=== PATIENT | female | born 1965 | race Caucasian/White ===

== ENCOUNTER 2017-03-06 17:32 | Emergency (ER) | payer OTHER ==
[2017-03-06 17:44] VITALS: BP 136/98; PULSE 99; TEMP 97.9; BMI 26.9
--- NOTE | 2017-03-06 19:01 | PDOC ---
History of Present Illness - History of Present Illness Initial Comments: 03/06/17 19:03 51 year old female with a PMHx of anxiety and asthma, who presents to the ER complaining of anxiety and rapid heart beat. She says that she was cleaning at home when she began thinking about her family in [place]. She says that she is worried about her mother who is 80 years old and continuously calls her every day asking for her to come and bring a generator. Patients mother has family in [place] but they are all in need she says. Patient reports having rapid heart rate, numbness in her arms and fingertips bilaterally, as well hyperventilatin. Denies chest pain, fever, chills, nausea, vomiting. PMD: Nelda Stanley Allergies: NKA <Neida Dodson - Last Filed: 03/06/17 19:03> <Stacy Canales - Last Filed: 03/06/17 23:38> - General Chief Complaint: Psychiatric Stated Complaint: ANXIETY Time Seen by Provider: 03/06/17 18:15 Past History <Neida Dodson - Last Filed: 03/06/17 19:03> - Past Medical History Asthma: Yes COPD: No - Surgical History Abdominal Surgery: (esure) - Immunization History Immunization Up to Date: Yes - Suicide/Smoking/Psychosocial Hx Smoking History: Never smoked Have you smoked in the past 12 months: Yes Number of Cigarettes Smoked Daily: 5 Information on smoking cessation initiated: Yes 'Breaking Loose' booklet given: 03/06/17 Hx Alcohol Use: No Drug/Substance Use Hx: No Substance Use Type: None <Stacy Canales - Last Filed: 03/06/17 23:38> - Past Medical History Allergies/Adverse Reactions: Allergies Allergy/AdvReac Type Severity Reaction Status Date / Time No Known Allergies Allergy Verified 03/06/17 17:37 Home Medications: Ambulatory Orders Albuterol Sulfate Inhaler - [Ventolin HFA Inhaler -] 1 puff IH PRN 03/06/17 Review of Systems - Review of Systems Comments:: 03/06/17 19:04 CONSTITUTIONAL: Absent: fever, no chills, no fatigue EYES: Absent: visual changes ENT: Absent: ear pain, no sore throat CARDIOVASCULAR: Present: palpitations Absent: chest pain. RESPIRATORY: Present: tachypnea Absent: cough, no SOB GI: Absent: abdominal pain, no nausea, no vomiting, no constipation, no diarrhea GENITOURINARY: Absent: dysuria, no frequency, no hematuria MUSCULOSKELETAL: Absent: back pain, no arthralgia, no myalgia SKIN: Absent: rash NEURO: Present: numbness in fingertips and upper extremities bilaterally. Absent: headache <Neida Dodson - Last Filed: 03/06/17 19:03> *Physical Exam - Vital Signs Last Vital Signs Temp Pulse Resp BP Pulse Ox 97.9 F 99 H 20 136/98 98 03/06/17 17:37 03/06/17 17:37 03/06/17 17:37 03/06/17 17:37 03/06/17 17:37 - Physical Exam Comments: 03/06/17 19:04 GENERAL: Well-appearing, well-nourished. Anxious appearing. HEENT: Normocephalic, atraumatic. PERRL, EOM intact. CARDIOVASCULAR: Normal S1, S2. Regular rate and rhythm. No murmurs. PULMONARY: No bruits, Clear to auscultation bilaterally. ABDOMEN: Soft, non-distended, non-tender. EXTREMITIES: Normal ROM in all four extremities. No gross deformities. SKIN: Warm, dry. No rash NEUROLOGICAL: No focal neurological deficits. <Neida Dodson - Last Filed: 03/06/17 19:03> - Vital Signs Last Vital Signs Temp Pulse Resp BP Pulse Ox 97.9 F 99 H 20 136/98 98 03/06/17 17:37 03/06/17 17:37 03/06/17 17:37 03/06/17 17:37 03/06/17 17:37 <Stacy Canales - Last Filed: 03/06/17 23:38> Heart Score/ECG Review - ECG Impressions Comment:: 03/06/17 19:04 EKG Impressions: Normal sinus rhythm with sinus arrhythmia Vent rate: 80 bpm <Neida Dodson - Last Filed: 03/06/17 19:03> Medical Decision Making - Medical Decision Making 03/06/17 23:30 51-year-old female presents because she has had increasing anxiety accompanying the palpitations and yesterday had an event where she became very upset and developed tingling in her bilateral hands and tingling around her lips. She has an 80-year-old mother who is living in [place] with no electrical power. The mother does not have a generator and has requested the patient purchase a generator and put on a plane and fly to [place] -the pt has minor children and a 3 month old grandchild she cares for and she feels very distressed over he mother's situation EKG is normal sinus rhythm with no evidence of any ischemia. Patient did not exhibit any shortness of breath or anterior chest pain IMP panic attack,hyperventilation <Stacy Canales - Last Filed: 03/06/17 23:38> *DC/Admit/Observation/Transfer - Attestations Scribe Attestion: 03/06/17 19:05 Documentation prepared by Neida Dodson, acting as medical review coordinator for Stacy Canales MD. <Neida Dodson - Last Filed: 03/06/17 19:03> <Stacy Canales - Last Filed: 03/06/17 23:38> Diagnosis at time of Disposition: Panic anxiety syndrome - Discharge Dispostion Disposition: HOME Condition at time of disposition: Stable - Referrals Referrals: Nelda Stanley MD [Primary Care Provider] - - Patient Instructions Printed Discharge Instructions: DI for Panic Disorder Additional Instructions: please followup with your primary doctor
--- NOTE | 2017-03-07 12:34 | EKG ---
Test Reason : Blood Pressure : / mmHG Vent. Rate : 080 BPM Atrial Rate : 080 BPM P-R Int : 134 ms QRS Dur : 086 ms QT Int : 354 ms P-R-T Axes : 040 049 034 degrees QTc Int : 408 ms NORMAL SINUS RHYTHM WITH SINUS ARRHYTHMIA NORMAL ECG WHEN COMPARED WITH ECG OF 22-FEB-2005 12:43, NO SIGNIFICANT CHANGE WAS FOUND Confirmed by DARYL MORENO MD ([id number]) on 03/07/2017 12:34:13 PM Referred By: Confirmed By:DARYL MORENO MD
== END 2017-03-06 20:03 | disposition home or self-care (01) ==
LOC: JER 17:32
DX: F41.0 Panic disorder [episodic paroxysmal anxiety] (principal); Z63.79 Other stressful life events affecting family and household
CPT/HCPCS: 93005; 93010; 99282-25

== ENCOUNTER 2017-03-10 17:24 | Emergency (ER) | payer OTHER ==
[2017-03-10 17:41] VITALS: TEMP 97.9; BMI 26.9
--- NOTE | 2017-03-10 17:51 | PDOC ---
History of Present Illness - General History Source: Patient Exam Limitations: No Limitations - History of Present Illness Initial Comments: 03/10/17 19:24 Pt. is a 51 y/o female with a PMH of anxiety who presents to the ED c/o of chest pain. Pt. states that she was cleaning the house when all of a sudden she felt a sharp pain to her left chest. She states that the pain then radiated to her neck. She states that the pain is made worse when she touches the area. Pt. states that she feels overwhelmed with home life and is concerned about her family. She states that before the pain started she felt short of breath. Denies LOC, palpitations, edema, n/v/d, fevers, chills. <Ryann Vance - Last Filed: 03/10/17 19:24> <Kaleigh Beltran - Last Filed: 03/10/17 20:02> - General Chief Complaint: Chest Pain Stated Complaint: CHEST PAIN Time Seen by Provider: 03/10/17 17:41 Past History - Travel Traveled outside of the country in the last 30 days: No Close contact w/someone who was outside of country & ill: No - Past Medical History Asthma: Yes COPD: No Psychiatric Problems: Yes (Anxiety) - Surgical History Abdominal Surgery: (esure) - Immunization History Immunization Up to Date: Yes - Suicide/Smoking/Psychosocial Hx Smoking History: Current every day smoker Have you smoked in the past 12 months: Yes Number of Cigarettes Smoked Daily: 5 Information on smoking cessation initiated: No 'Breaking Loose' booklet given: 03/06/17 Hx Alcohol Use: Yes Drug/Substance Use Hx: No Substance Use Type: None <Ryann Vance - Last Filed: 03/10/17 19:24> <Kaleigh Beltran - Last Filed: 03/10/17 20:02> - Past Medical History Allergies/Adverse Reactions: Allergies Allergy/AdvReac Type Severity Reaction Status Date / Time No Known Allergies Allergy Verified 03/10/17 18:31 Home Medications: Ambulatory Orders NK [No Known Home Medication] 03/10/17 Review of Systems - Review of Systems Able to Perform ROS?: Yes Comments:: 03/10/17 19:07 CONSTITUTIONAL: Absent: fever, chills, diaphoresis, generalized weakness, malaise, loss of appetite HEENT: Absent: rhinorrhea, nasal congestion, throat pain, throat swelling, difficulty swallowing, mouth swelling, ear pain, eye pain, visual Changes CARDIOVASCULAR: Present: chest pain Absent: loss of consciousness, palpitations, irregular heart rate, peripheral edema RESPIRATORY: Present: shortness of breath Absent: cough, dyspnea with exertion, orthopnea, wheezing, stridor, hemoptysis GASTROINTESTINAL: Absent: abdominal pain, abdominal distension, nausea, vomiting, diarrhea, constipation, melena, hematochezia GENITOURINARY: Absent: dysuria, frequency, urgency, hesitancy, hematuria, flank pain, genital pain MUSCULOSKELETAL: Absent: myalgia, arthralgia, joint swelling SKIN: Absent: rash, itching, pallor HEMATOLOGIC/IMMUNOLOGIC: Absent: easy bleeding, easy bruising, lymphadenopathy, frequent infections ENDOCRINE: Absent: unexplained weight gain, unexplained weight loss, heat intolerance, cold intolerance NEUROLOGIC: Absent: headache, focal weakness or paresthesias, dizziness, unsteady gait, seizure, mental status changes, bladder or bowel incontinence PSYCHIATRIC: Present: anxiety Absent: anxiety, depression, suicidal or homicidal ideation, hallucinations. Is the patient limited Ukrainian proficient: No <Ryann Vance - Last Filed: 03/10/17 19:24> *Physical Exam - Vital Signs Last Vital Signs Temp Pulse Resp BP Pulse Ox 97.9 F 81 17 137/89 100 03/10/17 17:31 03/10/17 17:31 03/10/17 17:31 03/10/17 17:31 03/10/17 17:31 - Physical Exam Comments: 03/10/17 19:07 GENERAL: Well developed, well nourished. Awake and alert. No acute distress. HEENT: Normocephalic, atraumatic. PERRLA, EOMI. No conjunctival pallor. Sclera are non- icteric. Moist mucous membranes. Oropharynx is clear. NECK: Supple. Full ROM. No JVD. Carotid pulses 2+ and symmetric, without bruits. No thyromegaly. No lymphadenopathy. CARDIOVASCULAR: TTP over the left chest. Regular rate and rhythm. No murmurs, rubs, or gallops. Distal pulses are 2+ and symmetric. PULMONARY: No evidence of respiratory distress. Lungs clear to auscultation bilaterally. No wheezing, rales or rhonchi. ABDOMINAL: Soft. Non-tender. Non-distended. No rebound or guarding. No organomegaly. Normoactive bowel sounds. MUSCULOSKELETAL Normal range of motion at all joints. No bony deformities or tenderness. No CVA tenderness. EXTREMITIES: No cyanosis. No clubbing. No edema. No calf tenderness. SKIN: Warm and dry. Normal capillary refill. No rashes. No jaundice. NEUROLOGICAL: Alert, awake, appropriate. Cranial nerves 2-12 intact. No deficits to light touch and temperature in face, upper extremities and lower extremities. No motor deficits in the in face, upper extremities and lower extremities. Normoreflexic in the upper and lower extremities. Normal speech. Toes are down- going bilaterally. Gait is normal without ataxia. PSYCHIATRIC: Cooperative. Good eye contact. Appropriate mood and affect. <Ryann Vance - Last Filed: 03/10/17 19:24> - Vital Signs Last Vital Signs Temp Pulse Resp BP Pulse Ox 97.9 F 81 17 137/89 100 03/10/17 17:31 03/10/17 17:31 03/10/17 17:31 03/10/17 17:31 03/10/17 17:31 <Kaleigh Beltran - Last Filed: 03/10/17 20:02> ED Treatment Course - LABORATORY CBC & Chemistry Diagram: 03/10/17 18:10 03/10/17 18:10 <Ryann Vance - Last Filed: 03/10/17 19:24> - LABORATORY CBC & Chemistry Diagram: 03/10/17 18:10 03/10/17 18:10 - ADDITIONAL ORDERS Additional order review: Laboratory Results 03/10/17 18:10 Sodium 141 Potassium 4.5 Chloride 106 Carbon Dioxide 25 Anion Gap 10 BUN 12 Creatinine 0.9 Creat Clearance w eGFR > 60 Random Glucose 100 Calcium 8.9 Total Bilirubin 0.3 AST 21 ALT 22 Alkaline Phosphatase 83 Creatine Kinase 377 H Creatine Kinase Index 0.6 CK-MB (CK-2) 2.537 Troponin I < 0.02 Total Protein 7.2 Albumin 4.0 03/10/17 18:10 RBC 4.16 MCV 93.9 MCHC 33.6 RDW 12.5 MPV 7.8 Neutrophils % 51.4 Lymphocytes % 34.0 Monocytes % 10.9 H Eosinophils % 2.1 Basophils % 1.6 <Kaleigh Beltran - Last Filed: 03/10/17 20:02> Medical Decision Making - Medical Decision Making 03/10/17 19:00 Pt. is a 51 y/o female with PMH of anxiety who presents to the ED c/o chest pain for one hour. Will r/o ACS at this time. Pt. thinks that this could be her anxiety but wants to make sure it is nothing worse. 1. CBC, CMP, Trop 2. CXR, EKG 3. Re-evaluate. Sign out given to Kaleigh Beltran NECKTIES PAINTER. Waiting for labs, EKG and dispo. <Ryann Vance - Last Filed: 03/10/17 19:24> - Medical Decision Making 03/10/17 19:58 Patient states she cannot stay for second set of Troponin to rule out ACS. Labs and EKG reviewed with patient. Patient states she has an appointment with Dr. Gant (Cardiology) on Sunday, but she is unable to stay. Patient agrees to sign out AMA. She verbalized having no pain, SOB, n/v/d at this time. No acute distress noted. Patient will f/u with control systems engineer this week. <Kaleigh Beltran - Last Filed: 03/10/17 20:02> *DC/Admit/Observation/Transfer <Ryann Vance - Last Filed: 03/10/17 19:24> - Discharge Dispostion Admit: No <Kaleigh Beltran - Last Filed: 03/10/17 20:02> Diagnosis at time of Disposition: Panic anxiety syndrome Chest pain Qualifiers: Chest pain type: unspecified Qualified Code(s): R07.9 - Chest pain, unspecified ; R07.9 - Chest pain, unspecified - Discharge Dispostion Disposition: AGAINST MEDICAL ADVICE Condition at time of disposition: Stable - Patient Instructions Printed Discharge Instructions: DI for Atypical Chest Pain Additional Instructions: Follow up with your control systems engineer as scheduled. Return if symptoms worsen or you change your mind regarding lab work and observation. Print Language: BULGARIAN
[2017-03-10 18:21] LABS: BASO % 1.6 % (0-2.0); EOS % 2.1 % (0-4.5); HEMATOCRIT 39.1 % (32.4-45.2); HEMOGLOBIN 13.1 GM/dL (10.7-15.3); MCH 31.6 pg (25.7-33.7); MCHC 33.6 g/dl (32.0-36.0); MEAN CELL VOLUME 93.9 fl (80-96); MEAN PLT VOLUME 7.8 fl (7.5-11.1); MONO % 10.9 % (3.8-10.2); NEUT % 51.4 % (42.8-82.8); PLATELET COUNT 206 K/MM3 (134-434); RBC 4.16 M/mm3 (3.60-5.2); RDW 12.5 % (11.6-15.6)
[2017-03-10 18:46] LABS: ANION GAP 10 (8-16); BILIRUBIN,TOTAL 0.3 mg/dL (0.2-1.0); BLOOD UREA NITROGEN 12 mg/dL (7-18); CALCIUM 8.9 mg/dL (8.5-10.1); CHLORIDE 106 mmol/L (98-107); CO2 25 mmol/L (21-32); CREATININE 0.9 mg/dL (0.55-1.02); GLUCOSE,RANDOM 100 mg/dL (74-106); POTASSIUM 4.5 mmol/L (3.5-5.1); SGOT/AST 21 U/L (15-37); SGPT/ALT 22 U/L (12-78); SODIUM 141 mmol/L (136-145); TOT PROT 7.2 g/dl (6.4-8.2)
[2017-03-10 18:49] LABS: ALK PHOS 83 U/L (45-117)
--- NOTE | 2017-03-10 19:11 | PDOC ---
*Physical Exam - Vital Signs Last Vital Signs Temp Pulse Resp BP Pulse Ox 97.9 F 81 17 137/89 100 03/10/17 17:31 03/10/17 17:31 03/10/17 17:31 03/10/17 17:31 03/10/17 17:31 ED Treatment Course - LABORATORY CBC & Chemistry Diagram: 03/10/17 18:10 03/10/17 18:10 - ADDITIONAL ORDERS Additional order review: Laboratory Results 03/10/17 18:10 Sodium 141 Potassium 4.5 Chloride 106 Carbon Dioxide 25 Anion Gap 10 BUN 12 Creatinine 0.9 Creat Clearance w eGFR > 60 Random Glucose 100 Calcium 8.9 Total Bilirubin 0.3 AST 21 ALT 22 Alkaline Phosphatase 83 Creatine Kinase 377 H Creatine Kinase Index 0.6 CK-MB (CK-2) 2.537 Troponin I < 0.02 Total Protein 7.2 Albumin 4.0 03/10/17 18:10 RBC 4.16 MCV 93.9 MCHC 33.6 RDW 12.5 MPV 7.8 Neutrophils % 51.4 Lymphocytes % 34.0 Monocytes % 10.9 H Eosinophils % 2.1 Basophils % 1.6 - RADIOLOGY Radiology Studies Ordered: Category Date Time Status CHEST X-RAY PORTABLE* [RAD] Stat Radiology 03/10/17 17:42 Taken Medical Decision Making - Medical Decision Making 03/10/17 19:45 The patient was seen and evaluated in conjunction with LOYD Vance under my direct supervision, ancillary studies were reviewed. I independently interviewed and evaluated the patient and I agree with the plan as outlined by LOYD Vance. 51y F hx of anxiety presents with complaint of chest pain. Pt enodrsed sharp L chest pain that started as she was cleaning. Worse with movement and touching. Denies diaphoresis, n/v, sob, alexandre. on exam the pt has focal point tenderness to her left chest wall. suspect msk pain/strain labs were reviewed and unremarkable pt decided to leae prior to 2nd set of trops, leaving AMA *DC/Admit/Observation/Transfer Diagnosis at time of Disposition: Chest pain, Panic anxiety syndrome - Discharge Dispostion Disposition: AGAINST MEDICAL ADVICE Condition at time of disposition: Stable - Referrals Referrals: Nelda Stanley MD [Primary Care Provider] - - Patient Instructions Printed Discharge Instructions: DI for Atypical Chest Pain Additional Instructions: Follow up with your fibre cement moulder as scheduled. Return if symptoms worsen or you change your mind regarding lab work and observation. Print Language: AUSTRIAN
[2017-03-10 20:20] VITALS: BP 123/72; PULSE 72
--- NOTE | 2017-03-14 13:37 | EKG ---
Test Reason : Blood Pressure : / mmHG Vent. Rate : 078 BPM Atrial Rate : 078 BPM P-R Int : 130 ms QRS Dur : 086 ms QT Int : 380 ms P-R-T Axes : 047 054 032 degrees QTc Int : 433 ms POOR DATA QUALITY, INTERPRETATION MAY BE ADVERSELY AFFECTED NORMAL SINUS RHYTHM NORMAL ECG WHEN COMPARED WITH ECG OF 06-MAR-2017 18:55, NO SIGNIFICANT CHANGE WAS FOUND Confirmed by LUCI SEGURA, DG ([id number]) on 03/14/2017 1:37:15 PM Referred By: Confirmed By:DG VERMA MD
== END 2017-03-10 20:23 | disposition left against medical advice (07) ==
LOC: JER 17:24
DX: F41.0 Panic disorder [episodic paroxysmal anxiety] (principal); J45.909 Unspecified asthma, uncomplicated; F17.210 Nicotine dependence, cigarettes, uncomplicated
CPT/HCPCS: 36415; 71010-TC; 80053; 82550; 82553; 84484; 85025; 93005; 93010; 99284-25

== ENCOUNTER 2017-07-21 19:01 | Observation (INO) | payer OTHER ==
[2017-07-21] MEDS ORDERED: ADENOSINE 6 MG/2 ML VIAL IVPUSH ONE (19:13)
--- NOTE | 2017-07-21 19:28 | PDOC ---
History of Present Illness - General Chief Complaint: Palpitations Stated Complaint: PALPITATION - History of Present Illness Initial Comments: 51 year old female with PMH of asthma and anxiety presenting with racing heart rate of sudden onset, left arm paresthesias, and chest pain. Describes the chest pain as an elephant on her chest 12/14, non radiating and constant. In EMS she had tachycardia thought to be SVT so she was given adenosine 6,12, and 12 without relief of symptoms or lowering of heart rate. Patient admits to daily weed smoking, occasional EtOH and actual had a shot of EtOH to try to "calm down " before coming to the ED. States she had these tachycardic episodes in the past with negative stress test a few months prior. Denies fevers, chills, nausea vomiting, diarrhea, or constipation. 07/21/17 22:26 Past History - Past Medical History Allergies/Adverse Reactions: Allergies Allergy/AdvReac Type Severity Reaction Status Date / Time No Known Allergies Allergy Verified 06/30/17 21:02 Home Medications: Ambulatory Orders Albuterol Sulfate Inhaler - [Ventolin Hfa Inhaler -] 1 - 2 inh PO Q4H PRN Albuterol Sulfate Inhaler - [Ventolin HFA Inhaler -] 1 - 2 inh PO QID #1 inhaler 07/01/17 predniSONE [Deltasone -] 40 mg PO DAILY #8 tablet 07/01/17 Asthma: Yes COPD: No HTN: Yes Psychiatric Problems: Yes (Anxiety) - Surgical History Abdominal Surgery: (esure) - Immunization History Immunization Up to Date: Yes - Suicide/Smoking/Psychosocial Hx Smoking History: Current every day smoker Have you smoked in the past 12 months: Yes Number of Cigarettes Smoked Daily: 6 Information on smoking cessation initiated: No 'Breaking Loose' booklet given: 03/06/17 Hx Alcohol Use: Yes Drug/Substance Use Hx: No Substance Use Type: None Review of Systems - Review of Systems Constitutional: No: Chills, Diaphoresis, Fever HEENTM: No: Blurred Vision, Nose Congestion Respiratory: No: Cough, Shortness of Breath, Wheezing Cardiac (ROS): Yes: Chest Pain, Irregular Heart Rate, Palpitations, Chest Tightness. No: Lightheadedness ABD/GI: No: Constipated, Diarrhea, Nausea, Vomiting : No: Burning, Dysuria, Discharge Musculoskeletal: No: Back Pain, Joint Pain Integumentary: No: Bruising, Erythema, Lesions Neurological: Yes: Numbness, Paresthesia. No: Headache Psychiatric: Yes: Anxiety. No: Depression, Frequent Crying *Physical Exam - Vital Signs Last Vital Signs Temp Pulse Resp BP Pulse Ox 98.7 F 124 H 19 182/126 98 07/21/17 19:09 07/21/17 19:09 07/21/17 19:09 07/21/17 19:09 07/21/17 19:09 - Physical Exam General Appearance: Yes: Nourished, Appropriately Dressed. No: Apparent Distress (moderate distress) HEENT: positive: EOMI, MEENA, Normal ENT Inspection, Normal Voice Neck: positive: Trachea midline, Normal Thyroid, Supple. negative: Tender, Rigid Respiratory/Chest: positive: Lungs Clear, Normal Breath Sounds. negative: Chest Tender, Respiratory Distress, Accessory Muscle Use Cardiovascular: positive: Regular Rhythm, Tachycardia. negative: Regular Rate Gastrointestinal/Abdominal: positive: Normal Bowel Sounds, Flat, Soft. negative : Tender Musculoskeletal: positive: Normal Inspection Extremity: positive: Normal Capillary Refill, Normal Inspection, Normal Range of Motion. negative: Tender Integumentary: positive: Normal Color, Warm. negative: Dry Neurologic: positive: Fully Oriented, Alert, Normal Mood/Affect (but anxious), Normal Response, Motor Strength 5/5 ED Treatment Course - LABORATORY CBC & Chemistry Diagram: 07/21/17 19:37 07/21/17 19:37 Medical Decision Making - Medical Decision Making Patient in sinus tachycardia on presentation. Given 2 and 2 IV Ativan with lowering of BP to 120s and resolution of tachycardia and general anxiety. patient informed about her cocaine positive drug screen and she admits that she ate some soup earlier today given to her by an estranged romantic partner who could have "spiked it" with cocaine. Her other labs were roughly WNL with negative D-dimer and negative Troponin, Signed out to the SHIP'S ENGINEER in stable condition. 07/21/17 23:06 *DC/Admit/Observation/Transfer Diagnosis at time of Disposition: Chest pain Qualifiers: Chest pain type: unspecified Qualified Code(s): R07.9 - Chest pain, unspecified - Discharge Dispostion Condition at time of disposition: Stable Admit: Yes - Referrals Referrals: Nelda Stanley MD [Primary Care Provider] - - Patient Instructions - Post Discharge Activity
--- NOTE | 2017-07-21 19:44 | PDOC ---
Attending Attestation - Resident Resident Name: Rupali Tubbs - ED Attending Attestation I have performed the following: I have examined & evaluated the patient, The case was reviewed & discussed with the resident, I agree w/resident's findings & plan, Exceptions are as noted - Physicial Exam PE: 07/21/17 20:29 Patient is awake and alert, anxious appearing, tachycardic Normocephalic, atraumatic PERRLA, EOMI cta Tachycardic, rrr, no murmurs rubs or gallops cta sft, nt, nd - Medical Decision Making 07/21/17 20:32 51-year-old female with history of hypertension, marijuana use who presents to the ER with hypertension, tachycardia and anxiety. Initial EKG obtained by EMS showed sinus tachycardia with a rate of 160 which the patient received total 30 mg of adenosine. In the ER, patient is noted to be hypertensive and tachycardic without evidence of end organ damage. EKG reveals no evidence of acute ischemia , there are no focal neurological deficits and lungs are clear. We'll obtain CBC /CMP/cardiac profile/TSH less drug screen. Will consider benzodiazepines followed by antihypertensive's for blood pressure and tachycardia controlled. We 'll obtain chest x-ray to evaluate for widened mediastinum given patient's chest pain with hypertension. Will reassess. 07/21/17 20:50 pt is cocaine positive. ativan-2mg iv has been given with reduction of HR and decrease in BP. HR-113, BP: 159/89. will administer addional 2 mg of ativan. <Ashutosh Simmons - Last Filed: 07/21/17 20:50> - HPI HPI: 07/21/17 23:48 The patient is a 51 year old female with a significant PMH of HTN, marijuana use who presents to the emergency department via EMS with hypertension, tachycardia, and increased anxiety today. The patient received 30mg of adenosine en route and initial EKG done by EMS showed sinus tach rate of 160. The patient denies chest pain, shortness of breath, headache and dizziness. Denies fever, chills, nausea, vomit, diarrhea and constipation. Denies dysuria, frequency, urgency and hematuria. Allergies: NKA Past surgical history: None reported. Social history: No reported alcohol or cigarette use. <Courtney Cabezas - Last Filed: 07/21/17 23:49>
[2017-07-21 19:47] LABS: BASO % 0.8 % (0-2.0); EOS % 1.1 % (0-4.5); HEMATOCRIT 37.9 % (32.4-45.2); LYMPH % 29.3 % (8-40); MCH 32.2 pg (25.7-33.7); MCHC 34.3 g/dl (32.0-36.0); MEAN CELL VOLUME 93.9 fl (80-96); MEAN PLT VOLUME 7.8 fl (7.5-11.1); MONO % 8.4 % (3.8-10.2); NEUT % 60.4 % (42.8-82.8); PLATELET COUNT 250 K/MM3 (134-434); RBC 4.04 M/mm3 (3.60-5.2); WHITE BLOOD COUNT 7.8 K/mm3 (4.0-10.0)
[2017-07-21 20:16] LABS: COCAINE, UR POSITIVE ng/ml (CUTOFF=300); METHADONE, UR NEGATIVE ng/ml (CUTOFF=300); OPIATES, URI NEGATIVE ng/ml (CUTOFF=300); PHENCYCLIDINE,URINE NEGATIVE ng/ml (CUTOFF=25); URINE AMPHETAMINES NEGATIVE ng/ml (CUTOFF=500); URINE BARBITURATES NEGATIVE ng/ml (CUTOFF=200); URINE BENZODIAZEPINES NEGATIVE ng/ml (CUTOFF=200)
[2017-07-21] MEDS ORDERED: LORazepam 2 MG/ML SDV VIAL ONE ×2 (20:28→20:52)
[2017-07-21 20:30] LABS: INR 1.07 (0.82-1.09); PROTHROMBIN TIME (PATIENT) 12.1 SEC (9.98-11.88)
[2017-07-21 20:34] LABS: ALBUMIN 3.8 g/dl (3.4-5.0); ANION GAP 7 (8-16); BILIRUBIN,TOTAL 0.2 mg/dL (0.2-1.0); BLOOD UREA NITROGEN 19 mg/dL (7-18); CALCIUM 8.7 mg/dL (8.5-10.1); CHLORIDE 110 mmol/L (98-107); CO2 25 mmol/L (21-32); CREATININE 0.8 mg/dL (0.55-1.02); GLUCOSE,RANDOM 110 mg/dL (74-106); POTASSIUM 3.9 mmol/L (3.5-5.1); SGOT/AST 16 U/L (15-37); SGPT/ALT 22 U/L (12-78); SODIUM 142 mmol/L (136-145)
[2017-07-21 20:37] LABS: ALK PHOS 83 U/L (45-117)
[2017-07-21] MEDS ORDERED: LORazepam 1 MG TABLET PO ONE (22:32)
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
[2017-07-22 01:35] VITALS: BMI 28.9
[2017-07-22 08:59] LABS: BASO % 0.6 % (0-2.0); HEMATOCRIT 36.5 % (32.4-45.2); HEMOGLOBIN 12.1 GM/dL (10.7-15.3); LYMPH % 39.2 % (8-40); MCH 31.7 pg (25.7-33.7); MCHC 33.3 g/dl (32.0-36.0); MEAN CELL VOLUME 95.4 fl (80-96); MEAN PLT VOLUME 7.8 fl (7.5-11.1); MONO % 10.7 % (3.8-10.2); NEUT % 46.5 % (42.8-82.8); PLATELET COUNT 248 K/MM3 (134-434); RBC 3.82 M/mm3 (3.60-5.2); RDW 13.3 % (11.6-15.6); WHITE BLOOD COUNT 6.3 K/mm3 (4.0-10.0)
[2017-07-22 09:21] LABS: CHOLESTEROL 158 mg/dL (50-200); HDL CHOLESTEROL 60 mg/dL (40-60); TRIGLYCERIDES 116 mg/dL (35-160)
[2017-07-22 09:26] LABS: ANION GAP 2 (8-16); BLOOD UREA NITROGEN 15 mg/dL (7-18); CALCIUM 8.3 mg/dL (8.5-10.1); CHLORIDE 112 mmol/L (98-107); CO2 31 mmol/L (21-32); CREATININE 0.8 mg/dL (0.55-1.02); GLUCOSE,RANDOM 92 mg/dL (74-106); PHOSPHOROUS 3.4 mg/dL (2.5-4.9); POTASSIUM 4.2 mmol/L (3.5-5.1); SODIUM 145 mmol/L (136-145)
[2017-07-22] MEDS: ASPIRIN 81 MG CHEWABLE TABLETS PO SCH (10:35)
--- NOTE | 2017-07-22 16:29 | PN ---
Progress Note (short form) - Note Progress Note: Subjective: The patient was seen and examined at the bedside, she denies any chest pain at this time, she states she is feeling better. Denies any left arm numbness or tingling. She reports taking her albuterol inhaler 3 times and using her albuterol nebulizer once prior to EMS arrival. Current Medications Generic Name Dose Route Start Last Admin Trade Name Harshad PRN Reason Stop Dose Admin Aspirin 81 mg 07/22/17 10:00 07/22/17 10:35 Asa - PO 81 mg DAILY ABBY Administration Objective: Vital Signs Period Temp Pulse Resp BP Sys/Heller Pulse Ox Last 24 Hr 98.0 F-98.7 F 72-124 18-24 106-182/71-126 98-100 Physical Exam: General: NAD, A&Ox3 Lungs: CTA bilaterally Heart: RRR, S1S2 Abd: Soft, non-tender, non-distended. Normoactive bowel sounds Ext: Warm, well-perfused. 2+ DP/PT bilaterally Neuro: CN 2-12 intact CBCD WBC 6.3 K/mm3 (4.0-10.0) 07/22/17 08:10 RBC 3.82 M/mm3 (3.60-5.2) 07/22/17 08:10 Hgb 12.1 GM/dL (10.7-15.3) 07/22/17 08:10 Hct 36.5 % (32.4-45.2) 07/22/17 08:10 MCV 95.4 fl (80-96) 07/22/17 08:10 MCHC 33.3 g/dl (32.0-36.0) 07/22/17 08:10 RDW 13.3 % (11.6-15.6) 07/22/17 08:10 Plt Count 248 K/MM3 (134-434) 07/22/17 08:10 MPV 7.8 fl (7.5-11.1) 07/22/17 08:10 CMP Sodium 145 mmol/L (136-145) 07/22/17 08:10 Potassium 4.2 mmol/L (3.5-5.1) 07/22/17 08:10 Chloride 112 mmol/L (98-107) H 07/22/17 08:10 Carbon Dioxide 31 mmol/L (21-32) 07/22/17 08:10 Anion Gap 2 (8-16) L 07/22/17 08:10 BUN 15 mg/dL (7-18) 07/22/17 08:10 Creatinine 0.8 mg/dL (0.55-1.02) 07/22/17 08:10 Creat Clearance w eGFR > 60 (>60) 07/21/17 19:37 Random Glucose 92 mg/dL (74-106) 07/22/17 08:10 Calcium 8.3 mg/dL (8.5-10.1) L 07/22/17 08:10 Total Bilirubin 0.2 mg/dL (0.2-1.0) 07/21/17 19:37 AST 16 U/L (15-37) 07/21/17 19:37 ALT 22 U/L (12-78) 07/21/17 19:37 Alkaline Phosphatase 83 U/L (45-117) 07/21/17 19:37 Total Protein 7.0 g/dl (6.4-8.2) 07/21/17 19:37 Albumin 3.8 g/dl (3.4-5.0) 07/21/17 19:37 CARDIAC ENZYMES Creatine Kinase 171 IU/L (26-192) 07/21/17 19:37 Troponin I < 0.02 ng/ml (0.00-0.05) 07/22/17 14:30 Assessment: This is a 51 year old female with PMHx of asthma, daily marijuana use, who presented to the ED with left sided chest pain and left arm numbness after using her albuterol inhaler x3 and albuterol nebulizer Plan: 1) Atypical chest pain - Likely 2/2 albuterol use. Patient reports inhaling chemical fumes that triggered asthma for which she used her albuterol inhaler x3 and albuterol nebulizer once which resulted in left sided chest discomfort and palpitations. Per ED records, EMS gave adenosine 6,12,12 for presumed SVT - EKG reviewed - F/u ECHO - Trop x3 negative - F/u cardiology consult 2) Asthma - Stable, no evidence of acute exacerbation of asthma - The patient does not want to take Dulera anymore (recent addition to her home medication list 3) F/E/N: - Sodium controlled diet - Monitor electrolytes 4) Prophylaxis: - OOB ambulating - SCDs bilaterally 5) Dispo: - Requires continued inpatient care CODE STATUS: FULL CODE Visit type - Emergency Visit Emergency Visit: Yes ED Registration Date: 07/21/17 Care time: The patient presented to the Emergency Department on the above date and was hospitalized for further evaluation of their emergent condition. - New Patient This patient is new to me today: Yes Date on this admission: 07/22/17 - Critical Care Critical Care patient: No
--- NOTE | 2017-07-22 17:36 | EKG ---
Test Reason : Blood Pressure : / mmHG Vent. Rate : 122 BPM Atrial Rate : 122 BPM P-R Int : 132 ms QRS Dur : 076 ms QT Int : 322 ms P-R-T Axes : 029 042 029 degrees QTc Int : 458 ms SINUS TACHYCARDIA OTHERWISE NORMAL ECG WHEN COMPARED WITH ECG OF 30-JUN-2017 22:53, NO SIGNIFICANT CHANGE WAS FOUND Confirmed by CHELSEA BRUNO MD ([id number]) on 07/22/2017 5:36:10 PM Referred By: Confirmed By:CHELSEA BRUNO MD
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
[2017-07-23 06:14] LABS: HEMATOCRIT 37.1 % (32.4-45.2); HEMOGLOBIN 12.8 GM/dL (10.7-15.3); MCH 32.3 pg (25.7-33.7); MCHC 34.4 g/dl (32.0-36.0); MEAN CELL VOLUME 93.8 fl (80-96); MEAN PLT VOLUME 7.9 fl (7.5-11.1); PLATELET COUNT 272 K/MM3 (134-434); RBC 3.95 M/mm3 (3.60-5.2); WHITE BLOOD COUNT 7.1 K/mm3 (4.0-10.0)
[2017-07-23 06:44] LABS: CHLORIDE 105 mmol/L (98-107); POTASSIUM 4.1 mmol/L (3.5-5.1); SODIUM 143 mmol/L (136-145)
[2017-07-23 06:52] LABS: ALBUMIN 3.7 g/dl (3.4-5.0); ALK PHOS 74 U/L (45-117); ANION GAP 10 (8-16); BILIRUBIN,TOTAL 0.6 mg/dL (0.2-1.0); BLOOD UREA NITROGEN 14 mg/dL (7-18); CALCIUM 9.3 mg/dL (8.5-10.1); CO2 28 mmol/L (21-32); CREATININE 0.7 mg/dL (0.55-1.02); GLUCOSE,RANDOM 99 mg/dL (74-106); SGOT/AST 18 U/L (15-37); SGPT/ALT 22 U/L (12-78); TOT PROT 6.6 g/dl (6.4-8.2)
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
[2017-07-23] MEDS: ASPIRIN 81 MG CHEWABLE TABLETS PO SCH (09:15)
[2017-07-23 11:48] VITALS: TEMP 98.8
[2017-07-23 16:16] VITALS: BP 140/85; PULSE 94
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
== END 2017-07-23 18:46 | disposition home or self-care (01) | DRG 203 ==
LOC: JER 19:01 → JERBED 22:30 → INTOOBSV 22:30 → J2W 07-22 01:20
PROVIDERS: ADMIT Internal Medicine; ATTEND Nurse Practitioner Acute Care
PROC: 3E033NZ Introduction of Analgesics, Hypnotics, Sedatives into Peripheral Vein, Percutaneous Approach (ICD-10-PCS; principal; 2017-07-21)
DX: R07.89 Other chest pain (principal); F41.9 Anxiety disorder, unspecified; F17.210 Nicotine dependence, cigarettes, uncomplicated; F12.20 Cannabis dependence, uncomplicated; F14.10 Cocaine abuse, uncomplicated; F41.0 Panic disorder [episodic paroxysmal anxiety]; R20.2 Paresthesia of skin; F10.20 Alcohol dependence, uncomplicated; R00.0 Tachycardia, unspecified; I10 Essential (primary) hypertension; J45.901 Unspecified asthma with (acute) exacerbation
CPT/HCPCS: 36415; 71046-TC-FY; 80048; 80053; 80061; 80307; 82550; 82553; 83036; 83721; 83735; 84100; 84443; 84484; 84702; 84703; 85025; 85027; 85379; 85610; 93005; 93010; 93306-TC; 96374; 96376; 99285-25; G0378

== ENCOUNTER 2020-06-12 22:42 | Emergency (ER) | payer SELFPAY ==
[2020-06-12 22:50] VITALS: TEMP 98.1; BMI 27.7
[2020-06-12 23:26] VITALS: PULSE 100
[2020-06-12 23:36] LABS: BASO % 0.9 % (0-2.0); EOS % 1.9 % (0-4.5); HEMATOCRIT 40.2 % (32.4-45.2); HEMOGLOBIN 13.5 GM/dL (10.7-15.3); LYMPH % 35.1 % (8-40); MCH 31.8 pg (25.7-33.7); MCHC 33.5 g/dl (32.0-36.0); MEAN PLT VOLUME 8.3 fl (7.5-11.1); MONO % 8.5 % (3.8-10.2); NEUT % 53.6 % (42.8-82.8); PLATELET COUNT 217 K/MM3 (134-434); RBC 4.24 M/mm3 (3.60-5.2); RDW 12.9 % (11.6-15.6); WHITE BLOOD COUNT 8.2 K/mm3 (4.0-10.0)
[2020-06-12 23:44] LABS: PROTHROMBIN TIME (PATIENT) 12.3 SEC (9.7-13.0)
[2020-06-12 23:47] LABS: ACTIVATED PTT 29.8 SECONDS (25.2-36.5)
[2020-06-12 23:55] LABS: CHLORIDE 108 mmol/L (98-107); POTASSIUM 3.8 mmol/L (3.5-5.1); SODIUM 143 mmol/L (136-145)
[2020-06-12 23:57] LABS: CALCIUM 9.2 mg/dL (8.5-10.1)
[2020-06-12 23:58] LABS: ANION GAP 7 MMOL/L (8-16); BLOOD UREA NITROGEN 14.8 mg/dL (7-18); CO2 28 mmol/L (21-32); GLUCOSE,RANDOM 108 mg/dL (74-106); MAGNESIUM 2.3 mg/dL (1.8-2.4)
[2020-06-13] LABS: SGPT/ALT 33 U/L (13-61)
[2020-06-13 00:01] LABS: CREATININE 0.9 mg/dL (0.55-1.3); SGOT/AST 21 U/L (15-37)
[2020-06-13 00:02] LABS: BILIRUBIN,TOTAL 0.3 mg/dL (0.2-1); TOT PROT 7.3 g/dl (6.4-8.2)
[2020-06-13 00:03] LABS: ALK PHOS 96 U/L (45-117)
[2020-06-13] MEDS ORDERED: amLODIPine BESYLATE 5 MG TABLET (FP) PO ONE (00:11)
[2020-06-13] MEDS ORDERED: amLODIPine BESYLATE 5 MG TABLET (FP) ONE (00:31)
[2020-06-13 01:31] VITALS: BP 131/69
== END 2020-06-13 01:40 | disposition home or self-care (01) ==
LOC: JER 22:42
DX: I10 Essential (primary) hypertension (principal)
CPT/HCPCS: 36415; 71045-TC-FY; 80053; 82550; 82553; 83735; 84484; 85025; 85610; 85730; 93005; 93010; 99285-25

== ENCOUNTER 2022-04-15 15:10 | Emergency (ER) | payer OTHER ==
[2022-04-15 15:58] VITALS: TEMP 98.4
[2022-04-15 17:42] LABS: BASO % 0.8 % (0-2.0); EOS % 0.2 % (0-4.5); HEMATOCRIT 42.4 % (32.4-45.2); HEMOGLOBIN 13.9 GM/dL (10.7-15.3); LYMPH % 29.3 % (8-40); MCH 30.5 pg (25.7-33.7); MCHC 32.8 g/dl (32.0-36.0); MEAN CELL VOLUME 93.1 fl (80-96); MEAN PLT VOLUME 8.3 fl (7.5-11.1); MONO % 7.2 % (3.8-10.2); NEUT % 62.5 % (42.8-82.8); PLATELET COUNT 291 10^3/uL (134-434); RBC 4.55 M/mm3 (3.60-5.2); RDW 13.4 % (11.6-15.6); WHITE BLOOD COUNT 13.2 K/mm3 (4.0-10.0)
[2022-04-15 18:11] LABS: ALBUMIN 4.5 g/dl (3.4-5.0); BLOOD UREA NITROGEN 17.9 mg/dL (7-18); CALCIUM 10.1 mg/dL (8.5-10.1)
[2022-04-15 18:16] LABS: BILIRUBIN,TOTAL 0.4 mg/dL (0.2-1)
[2022-04-15 18:18] LABS: CREATININE 0.9 mg/dL (0.55-1.3)
[2022-04-15 18:20] LABS: TOT PROT 7.9 g/dl (6.4-8.2)
[2022-04-15 18:37] VITALS: BMI 29.1
[2022-04-15 18:39] VITALS: BP 151/92; RESP 16
[2022-04-15] MEDS ORDERED: SODIUM CHLORIDE 0.9% 500 ML INFUS.BAG IV ONE (18:44)
[2022-04-15 19:35] LABS: EPI CELLS 5 /uL (0-25.1); HYALINE CASTS 0 /uL (0-3.1); URINE APPEARANCE CLEAR; URINE BACTERIA 108 /uL (0-1359); URINE BILIRUBIN NEGATIVE (NEGATIVE); URINE COLOR YELLOW; URINE GLUCOSE (UA) NEGATIVE (NEGATIVE); URINE KETONE NEGATIVE (NEGATIVE); URINE LEUK ESTERASE NEGATIVE (NEGATIVE); URINE NITRITE NEGATIVE (NEGATIVE); URINE PROTEIN NEGATIVE (NEGATIVE); URINE UROBILINOGEN 0.2 mg/dL (0.2-1.0); URINE WBC 7 /uL (0-25.8)
[2022-04-15 20:06] LABS: URINE RBC 21.9 /uL (0-23.9)
[2022-04-15] MEDS ORDERED: FAMOTIDINE 20 MG/50 ML IVPB 20 MG/50 ML MG IVPB ONE ×2 (20:30→20:35)
[2022-04-15 20:46] VITALS: PULSE 97
== END 2022-04-15 21:12 | disposition home or self-care (01) ==
LOC: JER 15:10 → JERFT 15:10
PROC: 3E033GC Introduction of Other Therapeutic Substance into Peripheral Vein, Percutaneous Approach (ICD-10-PCS; principal; 2022-04-15)
DX: R10.9 Unspecified abdominal pain (principal)
CPT/HCPCS: 36415; 74176-TC; 80053; 81003; 85025; 87086; 93005; 93010; 99285-25